=== PATIENT | female | born 1960 | race Caucasian/White ===

== ENCOUNTER 2022-12-24 21:18 | Emergency (ER) | payer MEDICARE, OTHER ==
[~2022-12-24 21:18] MED LIST: BUDE10.2 IH; CITA10TA99 PO; FLUT16H NASAL; MELO-381 PO; MONT-35 PO; OMEP20 PO
== END 2022-12-24 22:13 | disposition left against medical advice (07) ==
LOC: EMS 21:27
DX: Z53.21 Procedure and treatment not carried out due to patient leaving prior to being seen by health care provider (principal)